=== PATIENT | female | born 1970 | race Asian ===

== ENCOUNTER 2019-05-30 17:36 | Emergency (ER) | payer OTHER ==
[2019-05-30 17:53] VITALS: BP 153/77
[2019-05-30] MEDS ORDERED: DEXAMETHASONE 10 MG/ML VIAL PO STA (18:22)
[2019-05-30] MEDS ORDERED: CHERRY SYRUP 10 ML UDC PO ONE (18:22)
[2019-05-30] MEDS ORDERED: LORATADINE 10 MG TABLET PO STA (18:22)
--- NOTE | 2019-05-30 18:26 | ED Physician Documentation ---
PD HPI WOUND RECHECK - Stated complaint Stated Complaint: RT HAND LAC NOT HEALING - Chief complaint Chief Complaint: Wound - Histroy obtained from History obtained from: Patient - History of Present Illness Location: Other (R hand) Pain level max: 0 Pain level now: 0 - Additional information Additional information: 48-year-old female states that she cut her right hand approximately a month ago. This was in the webspace between the fourth and fifth digits. She states since that time she has been applying topical Benadryl, Neosporin, iodine and keeping the wound covered at all times. She states that now it is itchy and red around the area. Tetanus is up-to-date. Nothing makes it better or worse Review of Systems Constitutional: denies: Fever, Chills GI: denies: Vomiting, Diarrhea Skin: denies: Rash Musculoskeletal: denies: Neck pain, Back pain Neurologic: denies: Headache PD PAST MEDICAL HISTORY - Past Medical History Past Medical History: No - Past Surgical History Past Surgical History: No - Allergies Allergies/Adverse Reactions: Allergies Allergy/AdvReac Type Severity Reaction Status Date / Time No Known Drug Allergies Allergy Verified 05/30/19 17:46 - Living Situation Living Situation: reports: With family Living Arrangement: reports: At home PD ED PE NORMAL - Vitals Vital signs reviewed: Yes - General General: Alert and oriented X 3, No acute distress - HEENT HEENT: Moist mucous membranes - Derm Derm: Warm and dry - Extremities Extremities: Other (R hand - 3x3cm erythema to the dorsum of the hand. macerated tissue. no warmth or drainage.) - Neuro Neuro: Alert and oriented X 3 Results - Vitals Vitals: Vital Signs - 24 hr 05/30/19 17:46 Temperature 36.7 C Heart Rate 85 Respiratory 16 Rate Blood Pressure 153/77 H O2 Saturation 99 Oxygen O2 Source Room air PD MEDICAL DECISION MAKING - ED course Complexity details: considered differential, d/w patient, d/w family ED course: 48-year-old female that appears to be macerated tissue from continued occlusive dressings and continually keeping the area moist with multiple medications that are topical. We will have her stop all of these things. We will have her allow the area to air dry. This should resolve her symptoms.No evidence of infection. Patient counseled regarding signs and symptoms for which I believe and urgent re-evaluation would be necessary. Patient with good understanding of and agreement to plan and is comfortable going home at this time This document was made in part using voice recognition software. While efforts are made to proofread this document, sound alike and grammatical errors may occur. Departure - Departure Disposition: 01 Home, Self Care Clinical Impression: Allergic Qualifiers: Encounter type: initial encounter Qualified Code(s): T78.40XA - Allergy, unspecified, initial encounter Condition: Good Instructions: ED Wound Care Follow-Up: your,doctor in 1 week [Other] Comments: Leave the area open to air. Do not apply any ointments or creams. You can use Claritin or Zyrtec if you have itching. Return if you worsen. Discharge Date/Time: 05/30/19 18:37
== END 2019-05-30 18:37 | disposition home or self-care (01) ==
LOC: ED 17:36
DX: T78.40XA Allergy, unspecified, initial encounter (principal); L53.9 Erythematous condition, unspecified; L29.9 Pruritus, unspecified
CPT/HCPCS: 99282; 99284; A9270

== ENCOUNTER 2020-05-09 14:42 | Emergency (ER) | payer OTHER ==
[2020-05-09 15:00] VITALS: BP 157/81
--- NOTE | 2020-05-09 15:22 | ED Physician Documentation ---
PD HPI OPHTHO - Stated complaint Stated Complaint: RIGHT EYE PAIN - Chief complaint Chief Complaint: Heent - History obtained from History obtained from: Patient - Additional information Additional information: 49-year-old woman presents for right eye redness that showed up this morning when she woke. patient states she was sneezing a lot yesterday while cleaning. denies fevers, vision changes, itching or pain in the eye. denies foreign body sensation. Review of Systems Eyes: reports: Other (eye redness). denies: Loss of vision, Decreased vision, Irritation Neurologic: reports: Headache (+mild BL frontal NORRIS) PD PAST MEDICAL HISTORY - Past Surgical History Past Surgical History: No - Present Medications Home Medications: Ambulatory Orders Medication Instructions Recorded Confirmed Carboxymethylcellulose Sodium 15 ml OP 1-2XD PRN 30 Days #30 05/09/20 [Lubricant Eye Drop] drops - Allergies Allergies/Adverse Reactions: Allergies Allergy/AdvReac Type Severity Reaction Status Date / Time No Known Drug Allergies Allergy Verified 05/09/20 15:00 - Social History Does the pt smoke?: No Smoking Status: Never smoker PD ED PE NORMAL - Vitals Vital signs reviewed: Yes - General General: Alert and oriented X 3 - HEENT HEENT: PERRL, EOMI (R eye with subconjunctival hemorrhage at 12oclock to 6oclock position. fluorescein exam without any areas of increased uptake.) - Neuro Neuro: Alert and oriented X 3, pulmonologist 2-12 intact, No motor deficit, No sensory deficit, Normal speech Results - Vitals Vitals: Vital Signs - 24 hr 05/09/20 14:56 Temperature 36.7 C Heart Rate 96 Respiratory 16 Rate Blood Pressure 157/81 H O2 Saturation 98 Oxygen O2 Source Room air PD MEDICAL DECISION MAKING - ED course Complexity details: reviewed results, d/w patient ED course: 49-year-old woman presents with subconjunctival hemorrhage. No evidence of corneal abrasion on fluorescein exam.Patient counseled to use lubricating eyedrops and follow-up with her primary doctor. Return for any new or worsening symptoms. Departure - Departure Disposition: 01 Home, Self Care Clinical Impression: Subconjunctival hemorrhage, Tension headache Condition: Good Instructions: Subconjunctival Hemorrhage Prescriptions: Carboxymethylcellulose Sodium [Lubricant Eye Drop] 15 ml OP 1-2XD PRN 30 Days #30 drops PRN Reason: Dry Eye
== END 2020-05-09 15:39 | disposition home or self-care (01) ==
LOC: ED 14:42
DX: H11.31 Conjunctival hemorrhage, right eye (principal); G44.209 Tension-type headache, unspecified, not intractable
CPT/HCPCS: 99282; 99283

== ENCOUNTER 2020-11-12 10:33 | Emergency (ER) | payer OTHER ==
[2020-11-12] MEDS ORDERED: methocarbamoL 500 MG TABLET PO STA (12:42)
[2020-11-12] MEDS ORDERED: KETOROLAC 30 MG/ML VIAL IM STA (12:43)
--- NOTE | 2020-11-12 12:44 | ED Physician Documentation ---
History of Present Illness - Stated complaint Stated Complaint: L BACK PX - Chief complaint Chief Complaint: Back Pain - History obtained from History obtained from: Patient - Additonal information Additional information: 49-year-old woman with no pertinent past medical history p/w Intermittent left lower back pain for the past 2 weeks radiating down the left leg, unrelieved with Motrin, currently 8 out of 10, stabbing, increase in frequency. She has no prior history of back problems but does state that she lifted a heavy jug recently and thinks she tweaked her back. Also with increased urinary frequency but no dysuria or hematuria. Review of Systems Constitutional: denies: Fever Musculoskeletal: reports: Back pain, Extremity pain Neurologic: denies: Focal weakness, Numbness PD PAST MEDICAL HISTORY - Past Surgical History Past Surgical History: No - Present Medications Home Medications: Ambulatory Orders Medication Instructions Recorded Confirmed Methocarbamol [Robaxin-750] 750 mg PO Q8H PRN #15 tablet 11/12/20 cephALEXin [Keflex] 500 mg PO BID #14 tab 11/12/20 - Allergies Allergies/Adverse Reactions: Allergies Allergy/AdvReac Type Severity Reaction Status Date / Time No Known Drug Allergies Allergy Verified 11/12/20 10:48 - Social History Does the pt smoke?: No Smoking Status: Never smoker PD ED PE NORMAL - Vitals Vital signs reviewed: Yes - General General: Alert and oriented X 3, No acute distress, Well developed/nourished - HEENT HEENT: Atraumatic, PERRL, EOMI - Neck Neck: Supple, no meningeal sign - Cardiac Cardiac: RRR - Respiratory Respiratory: No respiratory distress, Clear bilaterally - Abdomen Abdomen: Non tender, Non distended - Back Back: No CVA TTP, No spinal TTP, Other (L lower back tender fourdrinier in muscle distribution. ) - Derm Derm: Normal color, Warm and dry - Extremities Extremities: No deformity - Neuro Neuro: Alert and oriented X 3 - Psych Psych: Normal mood, Normal affect Results - Vitals Vitals: Vital Signs - 24 hr 11/12/20 10:44 Temperature 36.2 C L Heart Rate 78 Respiratory 16 Rate Blood Pressure 152/93 H O2 Saturation 100 Oxygen O2 Source Room air - Labs Labs: Laboratory Tests 11/12/20 12:45 Urine Color STRAW Urine Clarity CLEAR Urine pH 6.0 Ur Specific [place] <=1.005 Urine Protein NEGATIVE Urine Glucose (UA) NEGATIVE Urine Ketones NEGATIVE Urine Occult Blood NEGATIVE Urine Nitrite NEGATIVE Urine Bilirubin NEGATIVE Urine Urobilinogen 0.2 (NORMAL) Ur Leukocyte Esterase SMALL H Urine RBC 0-5 Urine WBC 4-5 Ur Squamous Epith Cells FEW Squamous Urine Bacteria Few Urine Culture Comments INDICATED PD MEDICAL DECISION MAKING - ED course ED course: 49-year-old woman presented with left lower back pain radiating to the leg, unrelieved with Motrin. She appears to have sciatic back pain upon exam. We discussed conservative measures and a prescription for short course of muscle relaxer will be given. Patient will follow up with her primary doctor on the [facility] for referral to physical therapy.Strict return precautions given. Departure - Departure Disposition: Home, Self Care Clinical Impression: Sciatica, UTI (urinary tract infection) Condition: Stable Instructions: ED Spasm Back No Trauma, ED Sciatica, ED UTI Cystitis Female Prescriptions: cephALEXin [Keflex] 500 mg PO BID #14 tab Methocarbamol [Robaxin-750] 750 mg PO Q8H PRN #15 tablet PRN Reason: Pain Comments: You were seen in the emergency department for lower back strain and possible s ciatica. You should follow-up with your primary doctor for referral to physical therapy if you have persistent back pain. I am prescribing a short course of muscle relaxer to give you some relief in the short-term. Your urine also shows signs of possible infection so I am treating with antibiotics. If your urine culture shows no sign of infection then we will have you stop in a couple days. Return to the emergency department if you experience any fever, new or worsening symptoms or have other concerns.
[2020-11-12 12:54] LABS: BILIRUBIN,URINE NEGATIVE (NEGATIVE); GLUCOSE, URINE (UA) NEGATIVE (NEGATIVE); KETONES,URINE (UA) NEGATIVE (NEGATIVE); LEUKOCYTE ESTERASE, URINE SMALL (NEGATIVE); NITRITE,URINE NEGATIVE (NEGATIVE); OCCULT BLOOD,URINE NEGATIVE (NEGATIVE); PROTEIN,URINE NEGATIVE (NEGATIVE); UROBILINOGEN,URINE 0.2 (NORMAL) E.U./dL (NORMAL)
[2020-11-12 12:57] LABS: CLARITY,URINE CLEAR (CLEAR)
[2020-11-12 13:12] LABS: RBC,URINE 0-5 /HPF (0-5)
[2020-11-12 13:13] LABS: BACTERIA,URINE Few /HPF (None Seen); SQUAMOUS EPITHELIAL CELL,UR FEW Squamous (<= Few)
[2020-11-12 13:26] VITALS: BP 140/88
== END 2020-11-12 13:24 | disposition home or self-care (01) ==
LOC: ED 10:33
DX: M54.42 Lumbago with sciatica, left side (principal); N39.0 Urinary tract infection, site not specified
CPT/HCPCS: 81001; 87086; 96372; 99283; 99284; A9270

== ENCOUNTER 2022-03-15 17:15 | Emergency (ER) | payer OTHER ==
[2022-03-15 17:54] LABS: BILIRUBIN,URINE NEGATIVE (NEGATIVE); GLUCOSE, URINE (UA) NEGATIVE (NEGATIVE); KETONES,URINE (UA) NEGATIVE (NEGATIVE); LEUKOCYTE ESTERASE, URINE NEGATIVE (NEGATIVE); NITRITE,URINE NEGATIVE (NEGATIVE); OCCULT BLOOD,URINE NEGATIVE (NEGATIVE); PH,URINE 6.5 PH (5.0-7.5); PROTEIN,URINE NEGATIVE (NEGATIVE); UROBILINOGEN,URINE 0.2 (NORMAL) E.U./dL (NORMAL)
[2022-03-15 17:56] LABS: CLARITY,URINE CLEAR (CLEAR)
[2022-03-15 18:00] LABS: BASOPHILS # (AUTO) 0.1 10^3/uL (0.0-0.1); BASOPHILS % (AUTO) 1.1 %; EOSINOPHILS # (AUTO) 0.2 10^3/uL (0.0-0.7); EOSINOPHILS % (AUTO) 2.3 %; HCT - HEMATOCRIT 41.2 % (37.0-47.0); HGB - HEMOGLOBIN 13.6 g/dL (12.0-16.0); LYMPHOCYTES # (AUTO) 2.4 10^3/uL (1.5-3.5); LYMPHOCYTES % (AUTO) 35.7 %; MEAN CORPUSCULAR HEMOGLOBIN 28.8 pg (27.0-31.0); MEAN CORPUSCULAR VOLUME 87.3 fL (81.0-99.0); MEAN PLATELET VOLUME 9.5 fL (7.9-10.8); MONOCYTES # (AUTO) 0.3 10^3/uL (0.0-1.0); MONOCYTES % (AUTO) 5.1 %; NEUTROPHILS # (AUTO) 3.7 10^3/uL (1.5-6.6); NEUTROPHILS % (AUTO) 55.5 %; PLT - PLATELET COUNT 212 10^3/uL (130-450); RED BLOOD COUNT 4.72 10^6/uL (4.20-5.40); RED CELL DISTRIBUTION WIDTH 12.1 % (12.0-15.0); WHITE BLOOD COUNT 6.6 x10^3/uL (4.8-10.8)
--- NOTE | 2022-03-15 18:07 | ED Physician Documentation ---
PD HPI ABD PAIN - Stated complaint Stated Complaint: LOWER BACK PX - Chief complaint Chief Complaint: Abd Pain - History obtained from History obtained from: Patient, Family - Additional information Additional information: 51-year-old woman presents accompanied by her for the evaluation of really left leg pain. For about a week to 10 days without specific injury she has pain that is focused in the left posterior pelvis and thigh. It is worse with movement and walking. There is no injury, she is specifically worried about a UTI, and mentions left kidney pain, but where she points as the source of her pain is nowhere near the left flank. Review of Systems Constitutional: denies: Fever, Chills Nose: reports: Reviewed and negative Throat: reports: Reviewed and negative Cardiac: reports: Reviewed and negative Respiratory: reports: Reviewed and negative PD PAST MEDICAL HISTORY - Past Surgical History Past Surgical History: No - Present Medications Home Medications: Ambulatory Orders Medication Instructions Recorded Confirmed cephALEXin [Keflex] 500 mg PO BID #14 tab 11/12/20 methocarbamoL [Robaxin-750] 750 mg PO Q8H PRN #15 tablet 11/12/20 Oxycodone HCl/Acetaminophen 1 - 2 each PO Q6H PRN #14 tablet 03/15/22 [Percocet 5-325 mg Tablet] predniSONE [Deltasone] 40 mg PO DAILY 5 Days #10 tablet 03/15/22 - Allergies Allergies/Adverse Reactions: Allergies Allergy/AdvReac Type Severity Reaction Status Date / Time No Known Drug Allergies Allergy Verified 03/15/22 17:29 - Social History Does the pt smoke?: No Smoking Status: Never smoker PD ED PE NORMAL - Vitals Vital signs reviewed: Yes - General General: Alert and oriented X 3, No acute distress - Abdomen Abdomen: Normal bowel sounds, Soft, Non tender - Back Back: No CVA TTP, No spinal TTP - Extremities Extremities: Other (She has tenderness in the left sciatic notch. Positive left straight leg raise testing. The patient has equal and normal Achilles and patellar reflexes bilaterally. Normal sensation in all areas of the legs. Patient denies saddle anesthesia. Normal strength in flexion-extension at the ankles, k) - Neuro Neuro: Alert and oriented X 3, Normal speech Results - Vitals Vitals: Vital Signs - 24 hr 03/15/22 17:26 Temperature 36.0 C L Heart Rate 84 Respiratory 16 Rate Blood Pressure 156/80 H O2 Saturation 99 Oxygen O2 Source Room air - Labs Labs: Laboratory Tests 03/15/22 03/15/22 03/15/22 17:40 17:55 17:55 WBC 6.6 RBC 4.72 Hgb 13.6 Hct 41.2 MCV 87.3 MCH 28.8 MCHC 33.0 RDW 12.1 Plt Count 212 MPV 9.5 Neut # (Auto) 3.7 Lymph # (Auto) 2.4 Mineral # (Auto) 0.3 Eos # (Auto) 0.2 Baso # (Auto) 0.1 Absolute Nucleated RBC 0.00 Nucleated RBC % 0.0 Sodium 141 Potassium 3.6 Chloride 104 Carbon Dioxide 31 Anion Gap 6.0 BUN 7 Creatinine 0.7 Estimated GFR (MDRD) 88 L Glucose 101 H Calcium 9.3 Total Bilirubin 0.5 AST 28 ALT 28 Alkaline Phosphatase 104 Total Protein 7.5 Albumin 4.4 Globulin 3.1 Albumin/Globulin Ratio 1.4 Lipase 41 Urine Color LIGHT YELLOW Urine Clarity CLEAR Urine pH 6.5 Ur Specific [place] <=1.005 Urine Protein NEGATIVE Urine Glucose (UA) NEGATIVE Urine Ketones NEGATIVE Urine Occult Blood NEGATIVE Urine Nitrite NEGATIVE Urine Bilirubin NEGATIVE Urine Urobilinogen 0.2 (NORMAL) Ur Leukocyte Esterase NEGATIVE Ur Microscopic Review NOT INDICATED Urine Culture Comments NOT INDICATED PD MEDICAL DECISION MAKING - ED course ED course: 51-year-old woman with pain that is most consistent with sciatica. She is worried about her kidney but really is not pointing near the flank. Urinalysis and blood work are unremarkable. CT of the abdomen pelvis and lumbar spine were done showing mild arthritic changes but no other acute findings. She felt somewhat better after hydrocodone but felt it was not strong enough so was given 4 Percocet to go. Departure - Departure Disposition: 01 Home, Self Care Clinical Impression: Pelvic pain in female, Sciatica of left side Condition: Good Record reviewed to determine appropriate education?: Yes Instructions: ED Sciatica Prescriptions: predniSONE [Deltasone] 40 mg PO DAILY 5 Days #10 tablet Oxycodone HCl/Acetaminophen [Percocet 5-325 mg Tablet] 1 - 2 each PO Q6H PRN #14 tablet PRN Reason: pain Comments: I sent your prescriptions electronically to [facility] in [place]. As discussed, the CT of your abdomen showed no issues with your kidney. CT of your low spine showed degenerative disc disease with facet arthropathy. This could be causing sciatica which is most consistent with your presentation and location of pain. Return for new or worsening symptoms. Follow-up with your doctor next week for reevaluation, consideration for physical therapy. I am prescribing a short course of narcotic pain medication for you. These are potentially dangerous and addictive medications that should be used carefully. These medications may constipate you. Take an bqqu-[id number] stool softener (docusate) twice daily with plenty of water while taking these medications. If you go 24 hours without a bowel movement, take [id number] miralax, per package instructions. Do not drink or drive while taking these medications. If you received narcotic or sedating medications while in the emergency department, do not drive for 24 hours. Store this medication in a safe, secure place and out of reach of children. It is a violation of federal law to give or sell this medication to another person or to use in a manner other than prescribed. The ED will not refill narcotic prescriptions, including prescriptions lost or stolen. To dispose of unwanted medications: 1. [facility] at [address] in [place] has a medication drop box. They accept prescription medications (in pill form) Saturday through Saturday 9:00 a.m. to 5:00 p.m. 2. [facility] accepts prescription medications (in pill form only) for disposal year round. Call for more information. 3. Contact the [facility] for the next [facility] sponsored prescription drug collection event. , [phone], or [phone]; Note that many narcotic pain relievers also contain Tylenol/acetaminophen. Please ensure that your total dose of acetaminophen from all sources does not exceed 3 g (3000 mg) per day.
[2022-03-15] MEDS ORDERED: HYDROcod/ACETAM 5/325 MG TABLET PO STA (18:08)
[2022-03-15 18:12] LABS: ALBUMIN 4.4 g/dL (3.2-5.5); ALBUMIN/GLOBULIN RATIO 1.4 (1.0-2.2); BILIRUBIN,TOTAL 0.5 mg/dL (0.2-1.0); CALCIUM 9.3 mg/dL (8.5-10.3); CREATININE 0.7 mg/dL (0.4-1.0); POTASSIUM 3.6 mmol/L (3.5-5.0); TOTAL PROTEIN 7.5 g/dL (6.7-8.2)
--- NOTE | 2022-03-15 20:14 | CT Report ---
PROCEDURE: Abdomen/Pelvis WO INDICATIONS: L abd pain TECHNIQUE: Noncontrast 5 mm thick sections acquired from the diaphragms to the symphysis. 5 mm coronal and sagi ttal reformats were then performed. For radiation dose reduction, the following was used: automated exposure control, adjustment of mA and/or kV according to patient size. COMPARISON: None. FINDINGS: Image quality: There is mild motion artifact. Lung bases:There are a few small clustered nodules inferiorly in the right middle lobe on series 4 i mage 41 suggestive of a mild infectious or inflammatory process. Heart: Heart is normal in size. ABDOMEN: Liver:Noncontrast evaluation of liver demonstrates no discrete hepatic mass. Gallbladder: Within normal limits without calcified gallstones. Biliary ducts: No biliary ductal dilatation. Pancreas: Unremarkable. Spleen: Normal in size. Adrenal Glands: No adrenal nodules. Kidneys and Ureters: No hydronephrosis. Stomach and Bowel: Stomach, small bowel loops, and colon are normal in caliber and wall thickness. T he appendix is normal in appearance. There is colonic diverticulosis without acute diverticulitis. Peritoneum: No abnormal intraperitoneal fluid. No free air. Ventral Wall: No hernia. Abdominal Nodes: No retroperitoneal or mesenteric adenopathy by size criteria. Vessels: Aorta and inferior vena cava are normal in size. PELVIS: Pelvic Organs: Unremarkable. Bladder: Unremarkable. Pelvic Nodes: No enlarged lymph nodes. Miscellaneous: No inguinal hernias are seen. Bones: Visualized osseous structures demonstrate no suspicious focal lesions. IMPRESSION: IMPRESSION: 1. No definite acute intra-abdominal abnormality. 2. Colonic diverticulosis without acute diverticulitis. 3. No evidence of obstructive uropathy. Reviewed by: Cheikh Joaquin MD on 03/15/2022 8:12 PM PDT Approved by: Cheikh Joaquin MD on 03/15/2022 8:12 PM PDT Station ID: [id number]
--- NOTE | 2022-03-15 21:10 | CT Report ---
PROCEDURE: LUMBAR SPINE WO INDICATIONS: back pain -> L leg TECHNIQUE: Noncontrast 3 mm thick sections acquired from the T12 level to the sacrum. Sagittal and coronal refo rmats were constructed. For radiation dose reduction, the following was used: automated exposure co ntrol, adjustment of mA and/or kV according to patient size. COMPARISON: Concurrent CT abdomen pelvis. FINDINGS: Image quality: Excellent. Bones: There is preserved bony alignment. No acute vertebral body compression fractures. No suspic ious lytic or blastic bony lesions. Central spinal caliber is of normal overall caliber. No pars def ects. Evaluation of the disc spaces and neuroforamina is limited on CT. T12-L1: Normal in appearance. L1-L2: Normal in appearance. L2-L3: Normal in appearance. L3-L4: Mild loss of disc height with a small broad-based disc bulge. There is associated mild spinal canal narrowing with mild bilateral neuroforaminal narrowing. L4-L5: Small broad-based disc bulge. There is associated mild spinal canal narrowing with mild bilate ral neuroforaminal narrowing. L5-S1: Mild loss of disc height with a minimal broad-based disc bulge. No definite spinal canal or ne uroforaminal narrowing. There is mild facet arthropathy. Soft tissues: No retroperitoneal masses or hematomas. Visualized aorta is normal in caliber. IMPRESSION: 1. No fracture or subluxation. 2. Mild degenerative disc disease in the lower lumbar spine and mild facet arthropathy at L5-S1. No d efinite high-grade spinal canal or neuroforaminal narrowing. Reviewed by: Cheikh Joaquin MD on 03/15/2022 9:08 PM PDT Approved by: Cheikh Joaquin MD on 03/15/2022 9:08 PM PDT Station ID: [id number]
[2022-03-15] MEDS ORDERED: oxyCODONE/ACET 5/325 Prepack 4 PO STA (21:30)
[2022-03-15] MEDS ORDERED: predniSONE 20 MG TABLET PO STA (21:30)
[2022-03-15 21:47] VITALS: BP 155/79
== END 2022-03-15 21:53 | disposition home or self-care (01) ==
LOC: ED 17:15
DX: R10.2 Pelvic and perineal pain (principal); M54.32 Sciatica, left side
CPT/HCPCS: 36415; 72131; 74176; 80053; 81003; 83690; 85025; 99282; 99284; A9270; J7512; 81001; 87086

== ENCOUNTER 2022-05-01 01:03 | Emergency (ER) | payer OTHER ==
[2022-05-01] MEDS ORDERED: diphenhydrAMINE 25 MG CAPSULE PO STA (01:24)
[2022-05-01] MEDS ORDERED: KETOROLAC 10 MG TABLET PO STA (04:59)
[2022-05-01] MEDS ORDERED: DEXAMETHASONE 10 MG/ML VIAL PO STA (05:00)
[2022-05-01] MEDS ORDERED: CHERRY SYRUP 10 ML UDC PO ONE (05:00)
--- NOTE | 2022-05-01 05:02 | ED Physician Documentation ---
History of Present Illness - Stated complaint Stated Complaint: SWOLLEN THROAT - Chief complaint Chief Complaint: General - History obtained from History obtained from: Patient, Family (husbnad) - Additonal information Additional information: 51yF with NKDA, recently placed on robaxin for low back and L hip pain p/w allergic reaction. Patient developed periorbital swelling and itching tonight, responsive to benadryl and throat drop. denies fever, nausea, cp, soa. did have some throat tightness that resolved. no rash however face was initially flushed and red. Review of Systems Constitutional: denies: Fever, Chills Eyes: reports: Irritation, Other (perioribital swelling) Nose: denies: Rhinorrhea / runny nose Respiratory: reports: Other (throat tightness). denies: Dyspnea, Cough PD PAST MEDICAL HISTORY - Past Medical History Past Medical History: Yes - Past Surgical History Past Surgical History: No - Present Medications Home Medications: Ambulatory Orders Medication Instructions Recorded Confirmed cephALEXin [Keflex] 500 mg PO BID #14 tab 11/12/20 methocarbamoL [Robaxin-750] 750 mg PO Q8H PRN #15 tablet 11/12/20 Oxycodone HCl/Acetaminophen 1 - 2 each PO Q6H PRN #14 tablet 03/15/22 [Percocet 5-325 mg Tablet] predniSONE [Deltasone] 40 mg PO DAILY 5 Days #10 tablet 03/15/22 Ketorolac [Toradol] 10 mg PO Q6H PRN #30 tablet 05/01/22 - Allergies Allergies/Adverse Reactions: Allergies Allergy/AdvReac Type Severity Reaction Status Date / Time No Known Drug Allergies Allergy Verified 05/01/22 01:19 - Social History Does the pt smoke?: No Smoking Status: Never smoker PD ED PE NORMAL - Vitals Vital signs reviewed: Yes - General General: Alert and oriented X 3, No acute distress, Well developed/nourished - HEENT HEENT: Atraumatic, PERRL, EOMI, Moist mucous membranes, Pharynx benign - Neck Neck: Other (normal upper airway sounds on auscultation of neck) - Cardiac Cardiac: RRR - Respiratory Respiratory: No respiratory distress, Clear bilaterally - Abdomen Abdomen: Non tender, Non distended - Derm Derm: Normal color, Warm and dry, No rash - Extremities Extremities: No edema - Neuro Neuro: Alert and oriented X 3, No motor deficit, No sensory deficit - Psych Psych: Normal mood, Normal affect Results - Vitals Vitals: Vital Signs - 24 hr 05/01/22 05/01/22 01:19 04:52 Temperature 36.8 C Heart Rate 93 Respiratory 16 16 Rate Blood Pressure 150/74 H O2 Saturation 100 Oxygen O2 Source Room air PD MEDICAL DECISION MAKING - ED course ED course: 51yF presented with allergic reaction. benadryl and decadron provided with improvement. unsure of cause but since she recently was placed on robaxin this is a possible culprit. will switch to toradol for pain management and have her f/u with allergy/immunology. return precautions given. Departure - Departure Disposition: 01 Home, Self Care Clinical Impression: Allergic reaction Condition: Good Instructions: First Aid Allergic React Follow-Up: Pedro Huber MD [Physician No Access] - Prescriptions: Ketorolac [Toradol] 10 mg PO Q6H PRN #30 tablet PRN Reason: Pain Comments: You were seen in the ED for allergic reaction and received 50mg benadryl and 10mg decadron (a steroid). Please follow up with an allergy real estate legal assistant (referral enclosed) and do not take robaxin. A script was sent to [facility] for toradol, an alternative pain medicine. Please follow up with physical therapy and with your primary care provider as well. return to the ED if you have any new or worsening symptoms or other concerns.
[2022-05-01 05:08] VITALS: BP 126/66
== END 2022-05-01 05:12 | disposition home or self-care (01) ==
LOC: ED 01:03
DX: R22.0 Localized swelling, mass and lump, head (principal); L29.9 Pruritus, unspecified; T78.40XA Allergy, unspecified, initial encounter
CPT/HCPCS: 99282; 99284; A9270